=== PATIENT | female | born 1955 | race Caucasian/White ===

== ENCOUNTER 2017-08-10 12:35 | Emergency (ER) | payer OTHER ==
[~2017-08-10] VITALS: Ht 165.1 cm; Wt 70.0 kg
[2017-08-10 12:44] VITALS: BP 180/80; PULSE 80; RESP 16; TEMP 99.1; O2SAT 97
--- NOTE | 2017-08-10 13:35 | PD ---
HPI Chief Complaint: TOE PAIN Time Seen by Provider: 13:28 Travel History International Travel<30 days: No Contact w/Intl Traveler<30days: No Traveled to known affect area: No History of Present Illness HPI 62-year-old female presents for evaluation of right great toe injury. 4 days ago she was at work when a 5 pound piece of meat fell out of a freezer and landed on her right great toe. She was wearing sneakers at this time. She has been having some mild throbbing pain to the distal aspect of the toe but the symptoms have subsided over the past few days and she is requesting a note to return to work. She has no other complaints at this time. [facility] Social History Alcohol Use: No Tobacco Use: No Allergies-Medications (Allergen,Severity, Reaction): Coded Allergies: No Known Allergies (Unverified , 08/10/17) Reported Meds & Prescriptions Reported Meds & Active Scripts Active No Active Prescriptions or Reported Medications Review of Systems Musculoskeletal: Positive: Pain Skin: Positive Other (denies open wounds) Physical Exam Narrative GENERAL: Well-developed well-nourished female in no acute distress SKIN: Warm and dry. MUSCULOSKELETAL: No obvious deformities. Tender to palpation distal aspect right great toe. Data Data Last Documented VS Vital Signs Date Time Temp Pulse Resp B/P (MAP) Pulse Ox O2 Delivery O2 Flow Rate FiO2 08/10/17 12:44 99.1 80 16 180/80 (113) 97 Room Air Orders Orders Toe (Min 2vws) (08/10/17 ) Splint Or Brace Apply/Monitor (08/10/17 15:11) MDM Medical Decision Making Medical Screen Exam Complete: Yes Emergency Medical Condition: Yes Medical Record Reviewed: Yes Differential Diagnosis Toe contusion, subungual hematoma, fracture Narrative Course X-ray imaging reveals: CONCLUSION: 1. Nondisplaced first proximal phalanx fracture. The patient is given a copy of her x-ray report. She is being discharged with a postop shoe. Diagnosis Primary Impression: Toe fracture Qualified Codes: S92.416A - Nondisplaced fracture of proximal phalanx of unspecified great toe, initial encounter for closed fracture Departure Forms: Tests/Procedures, Work Release Enter return to work date: Aug 10, 2017 Additional Instructions: Follow-up with primary care physician in 2 weeks. Return for any emergent medical conditions. Med/Other Pt SpecificInfo: No Change to Meds Scripts No Active Prescriptions or Reported Meds Disposition: 01 DISCHARGE HOME Condition: Stable Kwesi Meraz Aug 10, 2017 13:35
--- NOTE | 2017-08-10 15:06 | RADRPT ---
EXAM DATE/TIME: 08/10/2017 14:38 [place] COMPARISON: No previous studies available for comparison. INDICATIONS : Smashed toe last Saturday. MEDICAL HISTORY : None. SURGICAL HISTORY : None. ENCOUNTER: Initial ACUITY: 4 - 6 days PAIN SCORE: 0/10 LOCATION: Right Great toe FINDINGS: There is a linear nondisplaced fracture involving the first proximal phalanx. Associated soft tissue swelling. Remaining osseous structures are intact. Joint spaces are maintained. CONCLUSION: 1. Nondisplaced first proximal phalanx fracture. Marcos Duke MD on August 10, 2017 at 15:03 Board Certified Radiologist. This report was verified electronically.
== END 2017-08-10 16:26 | disposition home or self-care (01) ==
LOC: PHED 12:35 → PHEFT 16:26
DX: S92.414A Nondisplaced fracture of proximal phalanx of right great toe, initial encounter for closed fracture (principal); W20.8XXA Other cause of strike by thrown, projected or falling object, initial encounter; Y99.0 Civilian activity done for income or pay
CPT/HCPCS: 73660; 99283; L3260